=== PATIENT | female | born 2000 | race Caucasian/White ===

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

== ENCOUNTER 2021-02-20 03:23 | Emergency (ER) | payer OTHER ==
[~2021-02-20] VITALS: Ht 172.7 cm; Wt 87.9 kg
[~2021-02-20 03:23] MED LIST changes: -CONTRAST GIVEN MC PRN; -IOHEXOL 240 MG/ML 50ML VIAL. ONE; -IOHEXOL 300 MG/ML 75 ML VIAL. IV ONE
[2021-02-20 03:30] VITALS: BP 116/79
--- NOTE | 2021-02-20 03:33 | PHYS DOC ---
Past History Past Medical History: No Pertinent History Past Surgical History: No Surgical History Smoking: Non-smoker Alcohol Use: None Drug Use: None Adult General HPI HPI Patient is a 20-year-old female presenting for dental pain. Reports noticing this yesterday evening without any noteworthy event, trauma, ingestion or other exposure. Nothing known makes better, cold fluids and chewing make worse. Pain is focal and nonradiating to bottom right molar. She has not taken anything for pain. She has history of cavity in the past but no other significant dental issues. She has a dentist but has not seen the dentist in over a year due to current COVID-19 pandemic Review of Systems Review of Systems Fourteen body systems of review of systems have been reviewed. See HPI for pertinent positives and negative responses, other cazares all other systems are negative, non-pertinent or non-contributory Allergies Allergies Allergies Coded Allergies Type Severity Reaction Last Updated Verified Sulfa (Sulfonamide Antibiotics) Allergy Intermediate Hives 12/03/13 No Physical Exam Physical Exam Constitutional: Well developed, well nourished, no acute distress, non-toxic appearance. HENT: Normocephalic, atraumatic, bilateral external ears normal, oropharynx moist, no oral exudates, poor dentition globally. Cavity noted to tooth #3, there is also dental caries noted to tooth #32 with surrounding gingival irritation without any obvious abscess, edema, exudate or other concerning finding, nose normal. Eyes: PERRLA, EOMI, conjunctiva normal, no discharge. Neck: Normal range of motion, no tenderness, supple, no stridor. Cardiovascular: Heart rate regular per monitor Lungs & Thorax: No respiratory distress or accessory muscle use, bilateral chest rise Abdomen: Abdomen soft, non-tender, bowel sounds present in all quadrants, no guarding or rebound, nonacute abdomen. Skin: Warm, dry, no erythema, no rash. Back: No tenderness, no CVA tenderness. Extremities: No tenderness, no cyanosis, no clubbing, ROM intact, no edema. Neurologic: Alert and oriented X 3, grossly normal motor & sensory function, no focal deficits noted. Psychologic: Affect normal, judgement normal, mood normal. EKG EKG [] Radiology/Procedures Radiology/Procedures [] Heart Score C/O Chest Pain: No Risk Factors: Risk Factors: DM, Current or recent (<one month) smoker, HTN, HLP, family history of CAD, obesity. Risk Scores: Risk Factors: DM, Current or recent (<one month) smoker, HTN, HLP, family history of CAD, obesity. Course & Med Decision Making Course & Med Decision Making ABCs unremarkable HPI and comprehensive physical exam nonconcerning for any emergent or surgical issues No indication for further diagnostic ER workup, intervention, or hospitalization at this time Discussed most likely diagnosis of dental carry, noninfected at this time. N orco given while in ER for pain control. Patient has dentist already established in outpatient setting who I advised she seek care from within upcoming 24 to 48 hours for definitive management. Strict return precautions discussed with good understanding by patient, all questions and concerns addressed prior to ER departure Dragon Disclaimer Dragon Disclaimer This electronic medical record was generated, in whole or in part, using a voice recognition dictation system. Departure Departure: Impression: Primary Impression: Pain due to dental caries Disposition: HOME / SELF CARE / HOMELESS Condition: STABLE Referrals: BLANCA HO MD (PCP) Additional Instructions: You were seen for dental pain. There does not appear to be any infection at this time. Take Ibuprofen (600-800mg) and Tylenol (500-650mg) alternating every 4-6 hours to help with inflammation and pain while you contact a dentist for further care. You should return to the ED if you develop worsening pain, fever > 101, swelling, redness, or any other new or concerning symptoms. Unfortunately, your pain is not likely to improve without seeing a dentist for further evaluation and treatment of your dental caries. Please call them first thing this morning once their office opens to review need for close outpatient follow-up for definitive management within upcoming 24 to 48 hours ELIE BLEDSOE DO Feb 20, 2021 03:33
[2021-02-20] MEDS: HYDROcodone/APAP 5/325MG 1 TAB TABLET PO ONE (03:51)
== END 2021-02-20 03:50 | disposition home or self-care (01) ==
LOC: ER 03:23
DX: K02.9 Dental caries, unspecified (principal); Z88.2 Allergy status to sulfonamides
CPT/HCPCS: 99283